=== PATIENT | female | born 1975 | race Caucasian/White ===

== ENCOUNTER → 2023-02-12 09:17 | Outpatient (CLI) | payer BC, SELFPAY ==
--- NOTE | 2023-02-12 09:19 | DI.RAD.S_ITS ---
PROCEDURE: XR FOOT LT MIN 3V INDICATIONS: Left post heel +inferior/post lat mall tenderness TECHNIQUE: 3 views of the foot were acquired. COMPARISON: None. FINDINGS: Bones: No fractures or dislocations. No suspicious bony lesions. Soft tissues: No tibiotalar joint effusion. Achilles tendon appears normal. IMPRESSION: No acute bony abnormality. Dictated by: Yuriy Haile M.D. on 02/12/2023 at 9:45 Approved by: Yuriy Haile M.D. on 02/12/2023 at 9:46
--- NOTE | 2023-02-12 09:19 | DI.RAD.S_ITS ---
PROCEDURE: XR ANKLE LT MIN 3V INDICATIONS: fall 7wk [employer], lat mall tender TECHNIQUE: 3 views of the ankle were acquired. COMPARISON: None. FINDINGS: Bones: No fractures or dislocations. Ankle mortise is normally aligned. No suspicious bony lesions. Soft tissues: No tibiotalar joint effusion. Achilles tendon appears normal. IMPRESSION: No acute bony abnormality or significant effusion. Dictated by: Yuriy Haile M.D. on 02/12/2023 at 9:44 Approved by: Yuriy Haile M.D. on 02/12/2023 at 9:45
== END ==
PROVIDERS: Referring Provider Student in an Organized Health Care Education/Training Program; Visit Provider Student in an Organized Health Care Education/Training Program
DX: S99.922A Unspecified injury of left foot, initial encounter (principal); M79.672 Pain in left foot; X58.XXXA Exposure to other specified factors, initial encounter
CPT/HCPCS: 73610; 73630